=== PATIENT | male | born 1985 | race Caucasian/White ===

== ENCOUNTER 2021-08-21 12:46 | Inpatient (IN) ==
--- NOTE | 2021-08-21 13:23 | Emergency Department Note ---
Impression & Plan Cellulitis of left lower extremity, Allergic reaction to drug, Acute GI bleeding ED Provider Note Name: CARROL ALVAREZ Age: 36 Sex: M Arrives Via: Walk-In Informant: Patient ED Provider: Juan Garcia MD Chief Complaint: leg swelling Impression: As Per Impressions Above Medical Decision Making: Pleasant 26 yr old male with recent visit for left leg cellulitis started on Keflex as outpatient. Cellulitis improving but increasing swelling of left lower leg including hand and right foot. He also has cracked/dry lips, some mouth ulcers, and has had mucous bloody stool. Breathing comfortably no distress no rash of rest of body and appears well. HgB stable and he is comfortable. Reviewed with Immunology and Hospitalist and will monitor in hospital overnight for further management. Prior Medical Record and Triage/Nursing Notes reviewed by Me Additional history obtained from chart Differentials:Contact dermatitis, viral exanthem, urticaria, allergic reaction, Alfredo-Lazaro syndrome, toxic epidermal necrolysis, erythema multiforme, cellulitis, scabies, HSV, varicella, zoster, eczema, staph scalded skin s yndrome, fungal infection, as well as other pathologies. Vital Signs: reviewed and remarkable for no significant abnormalities Interventions: dapto iv Labs:Reviewed and remarkable for no significant abnormalities Imaging:us dvt negative Consults:Dr Andrés SANCHEZ Immunology - Advised holding further Keflex. Start new abx. Avoid steroids at this time. Use Benadryl as needed. Will need to be monitored in hospital for worsening. Dr Lencho Escamilla Hospitalist Plan: Disposition:Hospitalization. Condition: Good History of Present Illness:36 yr old male arrives for evaluation of leg swelling. Patient started on Keflex QID 3 days ago for a left leg infection. He notes that over the last day developed cracked lips and started having some blood in his stool. Reports some mild left flank cramping. The left leg has swollen significantly since this started and now he is having some pain behind his left leg. The cellulitis is almost completely resolved and feeling much better. No fevers, chills, nausea, vomiting, syncope, chest pain, sob, headache, neck pain, nor other symptoms. Nothing makes better nor worse. ROS: See above HPI for pertinent positives & negatives. A total of 10 systems reviewed and were otherwise negative. Past Medical History:See Below Past Surgical History:See Below Family History:See Below Social History:See Below Home Medications:See Below Allergies:PNC, Amox Vitals:Blood Pressure: 177/94, Pulse 75, RR 20, T 3.4C, O2 99% on RA Physical Exam: GENERAL: Patient is well appearing and in no acute distress. EYES: No scleral icterus, unremarkable pupils. ENT: Cracked lips with some small areas of ulcerations in mouth. Mucous membranes moist, no nasal congestion. NECK: No masses appreciated, nomeningismus, trachea is midline. RESPIRATORY: No dyspnea. Clear to auscultation and equal bilaterally. No wheeze, no rhonchi. CARDIOVASCULAR: Regular rate and rhythm.No murmurs, rubs, gallops appreciated. GASTROINTESTINAL: Abdomen soft, non-tender, no peritonitis.Bowel sounds positive.No masses appreciated. BACK: No midline tenderness, no CVA tenderness EXTREMITIES: Normal motion all extremities, no cyanosis, Pitting edema left lower leg, there is improvement cellulitis from previous evaluation last week. NEUROLOGIC: Alert and oriented, no acute motor or sensory deficits, no focal weakness, cranial nerves grossly intact. SKIN: No rash, no jaundice, no diaphoresis. PSYCH: Appropriate GCS: 15 ED Course: Times/Reassessments: stable, looks well, breathing comfortably and in no distress Juan Garcia MD Past Med/Surg History Social History (System 03/27/20 @ 09:39 by Joanie Jose) Smoking Status: Never smoker Feels Safe at Home: Yes Allergies Allergies Allergy/AdvReac Type Severity Reaction Status Date / Time amoxicillin Allergy Unknown Unverified 08/21/21 14:43 beeswax Allergy Unknown Unverified 08/21/21 14:42 Penicillins Allergy Unknown Unverified 08/21/21 14:43 Home Meds Home Medications Medication Instructions Recorded Confirmed omeprazole 40 mg capsule,delayed 40 mg PO DAILY 08/21/21 08/21/21 release Previous Rx's Medication Instructions Recorded cephalexin 500 mg capsule 500 mg PO Q6H 10 Days #40 cap 08/18/21 Results & Data (ED) Vital Signs Vital Signs - 24 hr 08/21/21 12:58 Temperature 36.4 C L Temperature Source Temporal Artery Scan Pulse Rate 75 Respiratory Rate 20 Respiratory Effort / Characteristics Non-Labored Spontaneous Respiratory Depth Normal Respiratory Pattern Regular Blood Pressure 177/94 H Blood Pressure Mean 121 Pulse Oximetry 99 Oxygen Delivery Method Room Air Sepsis Recent Fever Within 48 Hours No Sepsis New/Unexplained Change in Mental Status No Sepsis Action Taken by Nursing No Action Required Laboratory Data Result diagrams: 08/21/21 13:38 08/21/21 13:38 Lab Results 08/21/21 08/21/21 08/21/21 Range/Units 13:38 13:38 13:38 WBC 5.40 (4.8-10.8) K/uL RBC 4.89 (4.7-6.1) M/uL Hgb 14.5 (14.0-18.0) g/dL Hct 40.9 L (42-52) % MCV 83.6 (80-100) fL MCH 29.7 (25-34) pg MCHC 35.5 (32-36) g/dL RDW Std Deviation 37.1 (36.4-46.3) fL RDW Coeff of Brooke 12.2 (11.5-14.5) % Plt Count 206 (130-400) K/uL MPV 10.1 (7.4-10.4) fL Immature Gran % (Auto) 1.7 % Neut % (Auto) 61.4 % Lymph % (Auto) 27.8 % [place] % (Auto) 6.3 % Eos % (Auto) 2.4 % Baso % (Auto) 0.4 % Neut # (Auto) 3.32 (1.4-6.5) K/uL Lymph # (Auto) 1.50 (1.2-3.4) K/uL [place] # (Auto) 0.34 (0.11-0.59) K/uL Eos # (Auto) 0.13 (0-0.5) K/uL Baso # (Auto) 0.02 (0-0.2) K/uL Immature Gran # (Auto) 0.09 H (0.00-0.02) K/uL Sodium 138 (136-145) mmol/L Potassium 3.8 (3.5-5.1) mmol/L Chloride 106 (98-107) mmol/L Carbon Dioxide 26 (21-32) mmol/L Anion Gap 6.0 (3-11) BUN 12 (7-18) mg/dl Creatinine 1.05 (0.6-1.4) mg/dl Est Cr Clr Drug Dosing 152.0 ml/min Est GFR ( Amer) 105.3 ml/min Est GFR (Non-Af Amer) 90.9 ml/min BUN/Creatinine Ratio 11.8 (10-20) Glucose 82 (70-99) mg/dl Calcium 9.3 (8.5-10.1) mg/dl Total Bilirubin 0.4 (0.2-1) mg/dl Direct Bilirubin < 0.1 (0-0.2) mg/dl AST 33 (15-37) U/L ALT 63 (12-78) U/L Alkaline Phosphatase 75 (45-117) U/L Total Creatine Kinase (39-308) U/L C-Reactive Protein (0-0.29) mg/dl Total Protein 7.9 (6.4-8.2) gm/dl Albumin 3.7 (3.4-5.0) gm/dl Urine Color Yellow Urine Appearance Clear (Clear) Urine pH 5.5 (4.5-7.5) Ur Specific Beatrice 1.012 (1.000-1.030) Urine Protein Negative (Negative) Urine Glucose (UA) Negative (Negative) Urine Ketones Negative (Negative) Urine Blood Negative (Negative) Urine Nitrite Negative (Negative) Urine Bilirubin Negative (Negative) Urine Urobilinogen Negative (Negative) Ur Leukocyte Esterase Negative (Negative) 08/21/21 Range/Units 13:38 WBC (4.8-10.8) K/uL RBC (4.7-6.1) M/uL Hgb (14.0-18.0) g/dL Hct (42-52) % MCV (80-100) fL MCH (25-34) pg MCHC (32-36) g/dL RDW Std Deviation (36.4-46.3) fL RDW Coeff of Brooke (11.5-14.5) % Plt Count (130-400) K/uL MPV (7.4-10.4) fL Immature Gran % (Auto) % Neut % (Auto) % Lymph % (Auto) % [place] % (Auto) % Eos % (Auto) % Baso % (Auto) % Neut # (Auto) (1.4-6.5) K/uL Lymph # (Auto) (1.2-3.4) K/uL [place] # (Auto) (0.11-0.59) K/uL Eos # (Auto) (0-0.5) K/uL Baso # (Auto) (0-0.2) K/uL Immature Gran # (Auto) (0.00-0.02) K/uL Sodium (136-145) mmol/L Potassium (3.5-5.1) mmol/L Chloride (98-107) mmol/L Carbon Dioxide (21-32) mmol/L Anion Gap (3-11) BUN (7-18) mg/dl Creatinine (0.6-1.4) mg/dl Est Cr Clr Drug Dosing ml/min Est GFR ( Amer) ml/min Est GFR (Non-Af Amer) ml/min BUN/Creatinine Ratio (10-20) Glucose (70-99) mg/dl Calcium (8.5-10.1) mg/dl Total Bilirubin (0.2-1) mg/dl Direct Bilirubin (0-0.2) mg/dl AST (15-37) U/L ALT (12-78) U/L Alkaline Phosphatase (45-117) U/L Total Creatine Kinase 238 (39-308) U/L C-Reactive Protein 2.44 H (0-0.29) mg/dl Total Protein (6.4-8.2) gm/dl Albumin (3.4-5.0) gm/dl Urine Color Urine Appearance (Clear) Urine pH (4.5-7.5) Ur Specific Beatrice (1.000-1.030) Urine Protein (Negative) Urine Glucose (UA) (Negative) Urine Ketones (Negative) Urine Blood (Negative) Urine Nitrite (Negative) Urine Bilirubin (Negative) Urine Urobilinogen (Negative) Ur Leukocyte Esterase (Negative) Imaging Data Radiologist's Impression: Venous Doppler Study 08/21/21 13:22 US venous doppler LE LT CLINICAL HISTORY: acute worsening left leg swelling posterior knee p COMPARISON: 08/18/2021 TECHNIQUE: Left lower extremity real-time compression venous ultrasound with Color Doppler imaging. Utilizing real-time ultrasonic imaging multiple real time high-resolution ultrasonic images with compression and noncompression maneuvers of the deep venous system in addition to color doppler imaging were performed from the common femoral vein through the proximal calf veins. FINDINGS: Currently there is normal compressibility of the deep venous system from the common femoral vein through the proximal calf veins. No current evidence of acute thrombosis is identified. Compared to the previous study, mildly enlarged left inguinal lymph noted is again seen. It measures 4.4 x 1.6 x 4.0 cm of the current study. Impression: No evidence of deep venous thrombus. Mildly enlarged left inguinal lymph node is again seen. ACT 112: Negative or not required by law. Electronically signed by: Sloan Barajas M.D. 08/21/2021 3:08 PM Discharge Plan Visit Data Chief Complaint: Leg Injury/Pain Stated Complaint: SWELLING L LEG ED Provider: Juan Garcia Discharge Problem: Cellulitis of left lower extremity, Allergic reaction to drug, Acute GI bleeding Forms Stand Alone Forms: [facility] Prescriptions Prescriptions: No Action cephalexin 500 mg capsule 500 mg PO Q6H 10 Days Qty: 40 RF: 0 omeprazole 40 mg capsule,delayed release(DR/EC) 40 mg PO DAILY RF: 0 Referrals Referrals: Maria M Isaacs PAYefriC [Primary Care Provider] - Discharge Problem: Allergic reaction to drug Qualifiers: Encounter type: initial encounter Qualified Code(s): T78.40XA - Allergy, unspecified, initial encounter
[2021-08-21 14:11] LABS: Basophils # (auto) 0.02 K/uL (0-0.2); Basophils % (auto) 0.4 %; Eosinophils # (auto) 0.13 K/uL (0-0.5); Eosinophils % (auto) 2.4 %; Hematocrit (blood only) 40.9 % (42-52); Hemoglobin 14.5 g/dL (14.0-18.0); Immature Granulocytes # (auto) 0.09 K/uL (0.00-0.02); Immature Granulocytes % (auto) 1.7 %; Lymphocytes % (auto) 27.8 %; Mean Corpuscular Hemoglobin 29.7 pg (25-34); Mean Corpuscular Hgb Conc 35.5 g/dL (32-36); Mean Corpuscular Volume 83.6 fL (80-100); Mean Platelet Volume 10.1 fL (7.4-10.4); Monocytes # (auto) 0.34 K/uL (0.11-0.59); Monocytes % (auto) 6.3 %; Neutrophils # (auto) 3.32 K/uL (1.4-6.5); Neutrophils % (auto) 61.4 %; Platelet Count 206 K/uL (130-400); RDW Coefficient of Variation 12.2 % (11.5-14.5); RDW Standard Deviation 37.1 fL (36.4-46.3); Red Blood Count 4.89 M/uL (4.7-6.1)
[2021-08-21 14:18] LABS: Albumin Level 3.7 gm/dl (3.4-5.0); BUN Creatinine Ratio 11.8 (10-20); Bilirubin Direct < 0.1 mg/dl (0-0.2); Blood Urea Nitrogen 12 mg/dl (7-18); Calcium 9.3 mg/dl (8.5-10.1); Carbon Dioxide 26 mmol/L (21-32); Chloride 106 mmol/L (98-107); Est GFR (African American) 105.3 ml/min; Est GFR (Non-African American) 90.9 ml/min; Glucose 82 mg/dl (70-99); Potassium 3.8 mmol/L (3.5-5.1); Sodium 138 mmol/L (136-145)
[2021-08-21 14:21] LABS: Alanine Aminotransferase 63 U/L (12-78); Alkaline Phosphatase 75 U/L (45-117); Aspartate Aminotransferase 33 U/L (15-37); Bilirubin,Total 0.4 mg/dl (0.2-1); Total Protein 7.9 gm/dl (6.4-8.2)
[2021-08-21 14:38] LABS: C Reactive Protein 2.44 mg/dl (0-0.29)
[2021-08-21 14:42] LABS: Appearance Urine Clear (Clear); Bilirubin Urine Negative (Negative); Blood Urine Negative (Negative); Color Urine Yellow; Glucose Urine UA Negative (Negative); Ketones Urine Negative (Negative); Leukocyte Esterase Urine Negative (Negative); Nitrite Urine Negative (Negative); Protein Urine Negative (Negative); Specific Gravity Urine 1.012 (1.000-1.030); Urobilinogen Urine Negative (Negative); pH Urine 5.5 (4.5-7.5)
--- NOTE | 2021-08-21 15:09 | Ultrasound Report ---
US venous doppler LE LT CLINICAL HISTORY: acute worsening left leg swelling posterior knee p COMPARISON: 08/18/2021 TECHNIQUE: Left lower extremity real-time compression venous ultrasound with Color Doppler imaging. Utilizing real-time ultrasonic imaging multiple real time high-resolution ultrasonic images with comp ression and noncompression maneuvers of the deep venous system in addition to color doppler imaging w ere performed from the common femoral vein through the proximal calf veins. FINDINGS: Currently there is normal compressibility of the deep venous system from the common femoral vein thro ugh the proximal calf veins. No current evidence of acute thrombosis is identified. Compared to the p revious study, mildly enlarged left inguinal lymph noted is again seen. It measures 4.4 x 1.6 x 4.0 c m of the current study. Impression: No evidence of deep venous thrombus. Mildly enlarged left inguinal lymph node is again seen. ACT 112: Negative or not required by law. Electronically signed by: Sloan Barajas M.D. 08/21/2021 3:08 PM
[2021-08-21] MEDS ORDERED: DAPTOmycin 450 MG in SYRINGE 0 ML IV ONE (15:53)
--- NOTE | 2021-08-21 16:48 | History & Physical Report ---
Date of Service August 21, 2021 Assessment & Plan (1) Cellulitis of left lower extremity: Plan: Patient is 36-year-old male with PMH eosinophilic esophagitis, LAZARA presented to ER with complaint of left leg redness. Patient reports several days ago started with chills and noticed left lower leg redness. He was seen in ER 08/18/2021 and treated for cellulitis with Rocephin and discharged on Keflex. He had negative Doppler for DVT. Patient states yesterday noticed some cracked lips and his mouth felt sore. He reports yesterday had some pink/red streaks in his stools. This morning had darker red streaks in stool. Denies abdominal pain, fever. Denies any recent injury, open wounds, insect bites to leg. Today noticed left leg appeared more swollen so presented to ER. Denies fever, diaphoresis, N/V/D/C, LANDA, dizziness, syncope, vision changes, neck pain, CP, SOB, orthopnea, palpitations, cough, sore throat, choking, otalgia, rhinorrhea, abdominal pain, paresthesias, extremity weakness, other rashes, urinary symptoms. Patient reports history of several episodes of left lower extremity redness warmth and edema over the past year. Reports first episode was in October 2020 and was treated with antibiotics for cellulitis and symptoms resolved. Another episode left lower extremity redness thought to be cellulitis occurred in 01/2021 and was treated with clindamycin as he was already on doxycycline for tick bite. Symptoms improved and then seemed to recur and he was put on Bactrim. 01/28/2021 patient had ultrasound LLE as he was also having painful lump to left groin. Ultrasound showed multiple enlarged lymph nodes with largest measuring 4.4 x 0.9 x 3.2 cm with additional lymph node measuring 1.9 x 1 x 2 cm. This was thought to be likely reactive. Patient states other episode of left lower extremity redness in 08/01 and was treated with azithromycin. Patient states since that time he does have pain with tenderness to left groin but has not noticed a large lump or any erythema. He saw infectious disease at [place] and had negative HIV, SULEMA, RF, Lyme, CRP, ESR, anti-smooth muscle antibody testing. Had negative TB with a DNA test. Patient with reported history of Lyme disease many years ago. Today in ER pt afebrile, BP elevated 177/94, otherwise vitals stable. Pt with continued LLE cellulitis on 3 days Keflex. No leukocytosis Hold kelfex In ER given daptomycin Continue daptomycin MRSA swab pending CBC, BMP in am (2) Oral mucosal lesion: Plan: oral ulcer and crusts to lip. reported blood tinged stool. no ocular symptoms at this time. No other rashes or bullous or skin sloughing at this time. No signs of anaphylaxis Hold Keflex and list as possible allergy Monitor closely for any further skin involvement suggestive of Alfredo Lazaro Syndrome Benadryl prn ER physician spoke to Dr Mirella SANCHEZ Immunology who advised holding Keflex and avoiding steroids at this time. can use Bendaryl as needed BLOOD IN STOOL Reported red streaked formed stool. Denies abdominal pain Hemoccult stool Hgb is 14 Repeat CBC in am (3) LAZARA (obstructive sleep apnea): Plan: Continue CPAP (4) Eosinophilic esophagitis: Plan: Continue PPI DVT Prophylaxis -SCDs Follows with Maria M Isaacs PA-C at [facility] for routine care Pt was seen and care coordinated with Dr Musa. See addendum (5) Tinea pedis: History of Present Illness Chief Complaint: Leg redness Primary Care Provider: Maria M Isaacs PA-C Patient is 36-year-old male with PMH eosinophilic esophagitis, LAZARA presented to ER with complaint of left leg redness. Patient reports several days ago started with chills and noticed left lower leg redness. He was seen in ER 08/18/2021 and treated for cellulitis with Rocephin and discharged on Keflex. He had negative Doppler for DVT. Patient states yesterday noticed some cracked lips and his mouth felt sore. He reports yesterday had some pink/red streaks in his stools. This morning had darker red streaks in stool. Denies abdominal pain, fever. Denies any recent injury, open wounds, insect bites to leg. Today noticed left leg appeared more swollen so presented to ER. Denies fever, diaphoresis, N/V/D/C, LANDA, dizziness, syncope, vision changes, neck pain, CP, SOB, orthopnea, palpitations, cough, sore throat, choking, otalgia, rhinorrhea, abdominal pain, paresthesias, extremity weakness, other rashes, urinary symptoms. Patient reports history of several episodes of left lower extremity redness warmth and edema over the past year. Reports first episode was in October 2020 and was treated with antibiotics for cellulitis and symptoms resolved. Another episode left lower extremity redness thought to be cellulitis occurred in 01/2021 and was treated with clindamycin as he was already on doxycycline for tick bite. Symptoms improved and then seemed to recur and he was put on Bactrim. 01/28/2021 patient had ultrasound LLE as he was also having painful lump to left groin. Ultrasound showed multiple enlarged lymph nodes with largest measuring 4.4 x 0.9 x 3.2 cm with additional lymph node measuring 1.9 x 1 x 2 cm. This was thought to be likely reactive. Patient states other episode of left lower extremity redness in 08/01 and was treated with azithromycin. Patient states since that time he does have pain with tenderness to left groin but has not noticed a large lump or any erythema. He saw infectious disease at [place] and had negative HIV, SULEMA, RF, Lyme, CRP, ESR, anti-smooth muscle antibody testing. Had negative TB with a DNA test. Patient with reported history of Lyme disease many years ago. Today in ER pt afebrile, BP elevated 177/94, otherwise vitals stable. 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 Allergies Allergy/AdvReac Type Severity Reaction Status Date / Time cephalexin Allergy Severe Dry Mucus Verified 08/21/21 16:18 Membranes amoxicillin Allergy Unknown Unverified 08/21/21 14:43 beeswax Allergy Unknown Unverified 08/21/21 14:42 Penicillins Allergy Unknown Unverified 08/21/21 14:43 Home Medications Medication Instructions Recorded Confirmed Type cephalexin 500 mg capsule 500 mg PO Q6H 10 Days #40 cap 08/18/21 08/21/21 Rx omeprazole 40 mg capsule,delayed 40 mg PO DAILY 08/21/21 08/21/21 History release Past Med/Surg History Medical History Eosinophilic esophagitis Obesity LAZARA (obstructive sleep apnea) Surgical History History of appendectomy History of colonoscopy History of esophagogastroduodenoscopy (EGD) Family History Other Depression Social History Smoking Status: Former smoker Do You Dip or Chew Tobacco: No; Hx Alcohol Use: Yes Alcohol type: beer Hx Substance Use: No Preferred Language: Austrian Communication Ability: Effective Comprehensive Advisor Required: No Beliefs That Will Affect Care: None Current Living Situation: Family Other Information That Helps Us Care for You: No Feels Safe at Home: Yes Safety Concerns: Feels Safe At This Time Assistive Devices: Glasses Review of Systems Review of Systems: All systems reviewed & are unremarkable except as noted in HPI & below Physical Exam Physical Exam: General: no distress, obese Head: normocephalic, atraumatic Eyes: PERRL, EOM's intact, conjunctiva non-injected, no discharge, anicteric ENT: normal inspection external ears, nose, mucous membranes moist, +crusts lips extending to luis border, +ulcers hard palate Neck: supple, trachea midline, non-tender Lungs: clear, no respiratory distress, no wheezing/rhonchi/rales CV: RRR, no murmur Abd: normal BS, soft, non-tender Ext: no calf tenderness; LLE: erythema, warmth and tenderness to left anterior leg extending to ankle, +edema left leg Neuro: A&O x 3, no focal deficits noted, normal affect Skin: as above in ext and face, otherwise skin warm, dry without other lesions Results & Data Results & Data ([facility]) Vital Signs (Past 12 Hours) Vital Signs Temp Pulse Resp BP Pulse Ox 08/21/21 12:58 36.4 C L 75 20 177/94 H 99 Laboratory Results Short CBC 08/21/21 Range/Units 13:38 WBC 5.40 (4.8-10.8) K/uL Hgb 14.5 (14.0-18.0) g/dL Hct 40.9 L (42-52) % Plt Count 206 (130-400) K/uL BMP 08/21/21 13:38 Sodium 138 Potassium 3.8 Chloride 106 Carbon Dioxide 26 BUN 12 Creatinine 1.05 Glucose 82 Calcium 9.3 Cardiac Enzymes 08/21/21 Range/Units 13:38 Total Creatine Kinase 238 (39-308) U/L Liver Function 08/21/21 Range/Units 13:38 Total Bilirubin 0.4 (0.2-1) mg/dl Direct Bilirubin < 0.1 (0-0.2) mg/dl AST 33 (15-37) U/L ALT 63 (12-78) U/L Alkaline Phosphatase 75 (45-117) U/L Albumin 3.7 (3.4-5.0) gm/dl Urine 08/21/21 Range/Units 13:38 Urine Color Yellow Urine Appearance Clear (Clear) Urine pH 5.5 (4.5-7.5) Ur Specific [place] 1.012 (1.000-1.030) Urine Protein Negative (Negative) Urine Glucose (UA) Negative (Negative) Diagnostic Findings Venous Doppler Study 08/21/21 13:22 US venous doppler LE LT CLINICAL HISTORY: acute worsening left leg swelling posterior knee p COMPARISON: 08/18/2021 TECHNIQUE: Left lower extremity real-time compression venous ultrasound with Color Doppler imaging. Utilizing real-time ultrasonic imaging multiple real time high-resolution u ltrasonic images with compression and noncompression maneuvers of the deep venous system in addition to color doppler imaging were performed from the common femoral vein through the proximal calf veins. FINDINGS: Currently there is normal compressibility of the deep venous system from the common femoral vein through the proximal calf veins. No current evidence of acute thrombosis is identified. Compared to the previous study, mildly enlarged left inguinal lymph noted is again seen. It measures 4.4 x 1.6 x 4.0 cm of the current study. Impression: No evidence of deep venous thrombus. Mildly enlarged left inguinal lymph node is again seen. ACT 112: Negative or not required by law. Electronically signed by: Sloan Barajas M.D. 08/21/2021 3:08 PM Supervising Physician Co-Signing Physician Notes I have seen and examined the patient and have discussed the case with the provider above. I agree with the assessment and plan as stated. 36 yo M presents with recurrent cellulitis of LLE and recent course of Keflex. Presents with dry lips (no swelling or throat closures), new oral mucosal lesion and hematochezia x 1-2 episodes at home. There is clear swelling and warmth of the LLE consistent with an acute cellulitis and patient denies any fevers, chills, abdominal pain, chest pain, shortness of breath, difficulty swallowing or new hives/rash. He has taken approximately 4 courses of antibiotics this year and has seen an infectious disease specialist. He was told to have his athlete's fo ot treated but there is still evidence of tinea pedis present in the interdigital spaces. Physical exam reveals an obese man in NAD with no respiratory distress or difficulty speaking. He is mentating clearly. He has no lip swelling present and ne erythema or swelling on his face or in his OP space. No submandibular or cervical LAD present and no tenderness in these areas to palpation. Heart and lung exam is normal. Sin is warm and dry with LLE having erythema from the mid lower leg distally to include the foot. Temp of left calf clearly warmer than the right which is normal. Medial malleolus is swollen and tender to palpation. Foot involvement present. There is interdigital flaking and maceration. Agree with broad spectrum IV antibiotics at this time and may need to consider systemic dermatophyte treatment. For now will ensure these mucosal, skin and GI symptoms do not evolve into something more serious overnight. DO Lenhco
[2021-08-21] MEDS ORDERED: CONSULT PHARMACY STA (18:01)
[2021-08-21] MEDS ORDERED: diphenhydrAMINE 50 MG/ML VIAL IV PRN (20:20)
[2021-08-21] MEDS ORDERED: ACETAMINOPHEN 325 MG TAB PO PRN (20:20)
[2021-08-21] MEDS ORDERED: ONDANSETRON INJ 2 MG/ML 2 ML VIAL IV PRN (20:20)
[2021-08-21] MEDS ORDERED: POLYETHYLENE (MIRALAX) 17 GM PACK PO PRN (20:20)
[2021-08-22 08:52] LABS: Hematocrit (blood only) 41.5 % (42-52); Hemoglobin 14.8 g/dL (14.0-18.0); Mean Corpuscular Hemoglobin 29.7 pg (25-34); Mean Corpuscular Hgb Conc 35.7 g/dL (32-36); Mean Corpuscular Volume 83.3 fL (80-100); Mean Platelet Volume 10.3 fL (7.4-10.4); Platelet Count 219 K/uL (130-400); RDW Coefficient of Variation 12.3 % (11.5-14.5); RDW Standard Deviation 37.3 fL (36.4-46.3); Red Blood Count 4.98 M/uL (4.7-6.1); White Blood Count 6.16 K/uL (4.8-10.8)
[2021-08-22] MEDS ORDERED: PANTOprazole 40 MG TAB PO SCH (09:00)
[2021-08-22 09:16] LABS: BUN Creatinine Ratio 11.7 (10-20); Calcium 9.2 mg/dl (8.5-10.1); Creatinine Clr Calc Pharmacy 137.1 ml/min; Est GFR (African American) 94.4 ml/min; Est GFR (Non-African American) 81.4 ml/min; Potassium 3.9 mmol/L (3.5-5.1)
--- NOTE | 2021-08-22 15:12 | Discharge Summary ---
Date of Service August 22, 2021 Admission HPI Per Admitting Provider Patient is 36-year-old male with PMH eosinophilic esophagitis, LAZARA presented to ER with complaint of left leg redness. Patient reports several days ago started with chills and noticed left lower leg redness. He was seen in ER 08/18/2021 and treated for cellulitis with Rocephin and discharged on Keflex. He had negative Doppler for DVT. Patient states yesterday noticed some cracked lips and his mouth felt sore. He reports yesterday had some pink/red streaks in his stools. This morning had darker red streaks in stool. Denies abdominal pain, fever. Denies any recent injury, open wounds, insect bites to leg. Today noticed left leg appeared more swollen so presented to ER. Denies fever, diaphoresis, N/V/D/C, LANDA, dizziness, syncope, vision changes, neck pain, CP, SOB, orthopnea, palpitations, cough, sore throat, choking, otalgia, rhinorrhea, abdominal pain, paresthesias, extremity weakness, other rashes, urinary symptoms. Patient reports history of several episodes of left lower extremity redness wa rmth and edema over the past year. Reports first episode was in October 2020 and was treated with antibiotics for cellulitis and symptoms resolved. Another episode left lower extremity redness thought to be cellulitis occurred in 01/2021 and was treated with clindamycin as he was already on doxycycline for tick bite. Symptoms improved and then seemed to recur and he was put on Bactrim. 1 patient had ultrasound LLE as he was also having painful lump to left groin. Ultrasound showed multiple enlarged lymph nodes with largest measuring 4.4 x 0.9 x 3.2 cm with additional lymph node measuring 1.9 x 1 x 2 cm. This was thought to be likely reactive. Patient states other episode of left lower extremity redness in 08/01 and was treated with azithromycin. Patient states since that time he does have pain with tenderness to left groin but has not noticed a large lump or any erythema. He saw infectious disease at [place] and had negative HIV, SULEMA, RF, Lyme, CRP, ESR, anti-smooth muscle antibody testing. Had negative TB with a DNA test. Patient with reported history of Lyme disease many years ago. Today in ER pt afebrile, BP elevated 177/94, otherwise vitals stable. 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 Principal Diagnosis LLE cellulitis Tinea Pedis Oral mucosal lesion Discharge Exam General: no distress, obese Head: normocephalic, atraumatic Eyes: PERRL, EOM's intact, conjunctiva non-injected, no discharge, anicteric ENT: normal inspection external ears, nose, mucous membranes moist, +crusts lips extending to luis border, +ulcers hard palate Neck: supple, trachea midline, non-tender Lungs: clear, no respiratory distress, no wheezing/rhonchi/rales CV: RRR, no murmur Abd: normal BS, soft, non-tender Ext: no calf tenderness; LLE: warmth and swelling has improved, slight light pink in posterior calf region wtih significant imrpovement in erythema overall. Neuro: A&O x 3, no focal deficits noted, normal affect Skin: as above in ext and face, otherwise skin warm, dry without other lesions Discharge Data Allergies Allergy/AdvReac Type Severity Reaction Status Date / Time cephalexin Allergy Severe Dry Mucus Verified 08/21/21 16:18 Membranes amoxicillin Allergy Unknown Unverified 08/21/21 14:43 beeswax Allergy Unknown Unverified 08/21/21 14:42 Penicillins Allergy Unknown Unverified 08/21/21 14:43 Consultations 08/21/21 15:46 ED Decision to Admit Stat Ordered Studies Laboratory Results WBC 6.16 K/uL (4.8-10.8) 08/22/21 08:29 RBC 4.98 M/uL (4.7-6.1) 08/22/21 08:29 Hgb 14.8 g/dL (14.0-18.0) 08/22/21 08:29 Hct 41.5 % (42-52) L 08/22/21 08:29 MCV 83.3 fL (80-100) 08/22/21 08:29 MCH 29.7 pg (25-34) 08/22/21 08:29 MCHC 35.7 g/dL (32-36) 08/22/21 08:29 RDW Std Deviation 37.3 fL (36.4-46.3) 08/22/21 08:29 RDW Coeff of Brooke 12.3 % (11.5-14.5) 08/22/21 08:29 Plt Count 219 K/uL (130-400) 08/22/21 08:29 MPV 10.3 fL (7.4-10.4) 08/22/21 08:29 Immature Gran % (Auto) 1.7 % 08/21/21 13:38 Neut % (Auto) 61.4 % 08/21/21 13:38 Lymph % (Auto) 27.8 % 08/21/21 13:38 [place] % (Auto) 6.3 % 08/21/21 13:38 Eos % (Auto) 2.4 % 08/21/21 13:38 Baso % (Auto) 0.4 % 08/21/21 13:38 Neut # (Auto) 3.32 K/uL (1.4-6.5) 08/21/21 13:38 Lymph # (Auto) 1.50 K/uL (1.2-3.4) 08/21/21 13:38 [place] # (Auto) 0.34 K/uL (0.11-0.59) 08/21/21 13:38 Eos # (Auto) 0.13 K/uL (0-0.5) 08/21/21 13:38 Baso # (Auto) 0.02 K/uL (0-0.2) 08/21/21 13:38 Immature Gran # (Auto) 0.09 K/uL (0.00-0.02) H 08/21/21 13:38 Sodium 139 mmol/L (136-145) 08/22/21 08:29 Potassium 3.9 mmol/L (3.5-5.1) 08/22/21 08:29 Chloride 107 mmol/L (98-107) 08/22/21 08:29 Carbon Dioxide 21 mmol/L (21-32) 08/22/21 08:29 Anion Gap 10.0 (3-11) 08/22/21 08:29 BUN 13 mg/dl (7-18) 08/22/21 08:29 Creatinine 1.15 mg/dl (0.6-1.4) 08/22/21 08:29 Est Cr Clr Drug Dosing 137.1 ml/min 08/22/21 08:29 Est GFR ( Amer) 94.4 ml/min 08/22/21 08:29 Est GFR (Non-Af Amer) 81.4 ml/min 08/22/21 08:29 BUN/Creatinine Ratio 11.7 (10-20) 08/22/21 08:29 Glucose 176 mg/dl (70-99) H 08/22/21 08:29 Calcium 9.2 mg/dl (8.5-10.1) 08/22/21 08:29 Total Bilirubin 0.4 mg/dl (0.2-1) 08/21/21 13:38 Direct Bilirubin < 0.1 mg/dl (0-0.2) 08/21/21 13:38 AST 33 U/L (15-37) 08/21/21 13:38 ALT 63 U/L (12-78) 08/21/21 13:38 Alkaline Phosphatase 75 U/L (45-117) 08/21/21 13:38 Total Creatine Kinase 238 U/L (39-308) 08/21/21 13:38 C-Reactive Protein 2.44 mg/dl (0-0.29) H 08/21/21 13:38 Total Protein 7.9 gm/dl (6.4-8.2) 08/21/21 13:38 Albumin 3.7 gm/dl (3.4-5.0) 08/21/21 13:38 Urine Color Yellow 08/21/21 13:38 Urine Appearance Clear (Clear) 08/21/21 13:38 Urine pH 5.5 (4.5-7.5) 08/21/21 13:38 Ur Specific [place] 1.012 (1.000-1.030) 08/21/21 13:38 Urine Protein Negative (Negative) 08/21/21 13:38 Urine Glucose (UA) Negative (Negative) 08/21/21 13:38 Urine Ketones Negative (Negative) 08/21/21 13:38 Urine Blood Negative (Negative) 08/21/21 13:38 Urine Nitrite Negative (Negative) 08/21/21 13:38 Urine Bilirubin Negative (Negative) 08/21/21 13:38 Urine Urobilinogen Negative (Negative) 08/21/21 13:38 Ur Leukocyte Esterase Negative (Negative) 08/21/21 13:38 Nasal Screen MRSA (PCR) Negative (Negative) 08/21/21 Unknown Stool Occult Bld Scrn Negative (Negative) 08/22/21 12:55 COVID-19 Eval Order Covid19 at [facility] 08/21/21 17:06 SARS-CoV-2 (PCR) NEGATIVE (Negative) 08/21/21 17:06 Impressions Venous Doppler Study 08/21/21 13:22 US venous doppler LE LT CLINICAL HISTORY: acute worsening left leg swelling posterior knee p COMPARISON: 08/18/2021 TECHNIQUE: Left lower extremity real-time compression venous ultrasound with Color Doppler imaging. Utilizing real-time ultrasonic imaging multiple real time high-resolution ultrasonic images with compression and noncompression maneuvers of the deep venous system in addition to color doppler imaging were performed from the common femoral vein through the proximal calf veins. FINDINGS: Currently there is normal compressibility of the deep venous system from the common femoral vein through the proximal calf veins. No current evidence of acute thrombosis is identified. Compared to the previous study, mildly enlarged left inguinal lymph noted is again seen. It measures 4.4 x 1.6 x 4.0 cm of the current study. Impression: No evidence of deep venous thrombus. Mildly enlarged left inguinal lymph node is again seen. ACT 112: Negative or not required by law. Electronically signed by: Sloan Barajas M.D. 08/21/2021 3:08 PM Hospital Course (1) Cellulitis of left lower extremity: The patient was admitted to medicine on Daptomycin IV. His cellulitis and swelling responded to almost normal by the following day. Oral ulcer was fading, as was dryness to lips. No ocular symptoms reported. No other rashes or bullous lesions or skin sloughing was seen. No signs/symptoms of anaphylaxis. Benadryl was not required during his hospital stay. He improved significantly in the leg with skin just a very scant light pink color, swelling completely resolved. He had a normal BM. GI was notified and will orchestrate an outpatient followup regarding recent hematochezia. Tinea pedis with inderdigital maceration was noted, likely the source of his recurrent cellulitis. He was discharged in stable condition with a short course of clindamycin and terbinafine (2 weeks) and close primary care follow-up in one week. (2) Oral mucosal lesion: (3) Tinea pedis: Total Time Total Time Spent Total Time Spent (In Minutes): 60 Discharge Plan Discharge Items Patient Disposition: Home - Self-Care Reason For Visit: RASH Discharge Diagnosis: LLE cellulitis Tinea Pedis Oral mucosal lesion Condition on Discharge: Good Activity: Resume your previous activity Non-emergency contact: Primary Care Provider Call non-emergency contact if: you have any medication questions, your symptoms worsen, your pain is not controlled, your pain is worsening, your pain is unus ual for you, your pain is concerning for you and you have a fever Follow-up/Referrals: Maria M Isaacs PA-C [Primary Care Provider] - Diet: Regular Addtl Attending Provider Instructions: Please take all medications as instructed on discharge list below. You are being placed on an antibiotic called clindamycin. Please complete the full antibiotic course for treatment of your lower extremity cellulitis. You are being placed on an antifungal medicine called terbinafine. While on this medication your liver function should be monitored with lab work. This may be ordered by your primary care doctor. [facility] gastroenterology was notified of recent blood in stool and will contact you to set up an outpatient follow-up appointment. It is recommended that you follow-up with your primary care provider within 1 week of hospital stay in order to check the progress of your infections on therapy prescribed, order screening blood work as needed, facilitate any referral to GI for recent blood per rectum, and ensure you are still doing well after hospital stay. It was a pleasure taking care of you! Please call if you have any questions or problems. You can reach a [facility] hospitalist on duty at [facility] [address] 24 hours a day by calling [phone]. Take care of yourself. Teresita Musa DO [facility] Hospitalist Pending Studies at Discharge: No Stand-Alone Forms: My [facility] Medications and DC Order Prescriptions: New terbinafine HCl 250 mg tablet 250 mg PO DAILY Qty: 14 RF: 0 clindamycin HCl 300 mg capsule 300 mg PO Q6H 7 Days Qty: 28 RF: 0 Continued omeprazole 40 mg capsule,delayed release(DR/EC) 40 mg PO DAILY RF: 0 Discontinued cephalexin 500 mg capsule 500 mg PO Q6H 10 Days Qty: 40 RF: 0 Discharge Orders: Discharge Order (Routine); Ordered 08/22/21 Ordered By: Teresita Musa Admission Data Admit Date/Time: 08/21/21 16:19 Attending Provider: Teresita Musa Admit Provider: Teresita Musa Primary Care Provider: Maria M Isaacs Other Providers: Teresita Musa
[2021-08-22] MEDS ORDERED: DAPTOmycin 450 MG in SYRINGE 0 ML IV SCH (17:00)
== END 2021-08-22 16:18 | disposition home or self-care (01) | DRG 603 ==
LOC: ED 12:46 → 2N 16:19